=== PATIENT | female | born 2000 | race Caucasian/White ===

== ENCOUNTER 2022-08-31 09:16 | Emergency (ER) | payer SELFPAY ==
[2022-08-31] VITALS (24 sets, daily range): BP systolic 104–165; BP diastolic 63–100; PULSE 80–112; RESP 16–18; TEMP 36.8; O2SAT 95–100
--- NOTE | ~2022-08-31 | CT_ITS ---
EXAMINATION: CT abdomen pelvis w con DATE: 08/31/2022 12:49 INDICATION: Abdominal pain. Vomiting. Leukocytosis. TECHNIQUE: Computed tomography (CT) of the abdomen and pelvis was performed with 100 mL Omnipaque 350 intravenous contrast. Automated exposure control and iterative reconstruction technique were employe d. The dose-length product was 367.02 mGy-cm. COMPARISON: None. FINDINGS: The visualized portions of the lung bases are clear without pneumonia or pleural effusion. The heart size is normal. No pericardial effusion. The liver, gallbladder, spleen, pancreas, adrenal glands, and kidneys are normal. There are no dilated loops of bowel. The appendix is normal. There ar e no pathologically enlarged lymph nodes. There is no free intraperitoneal fluid. There is dextrocurv ature of thoracolumbar spine. IMPRESSION: 1. No etiology for the patient's symptoms. Reviewed, dictated and finalized at location A. [employer]
[2022-08-31] MEDS: ONDANSETRON INJ 4 MG/2 ML VIAL IV PUSH (09:58)
[2022-08-31] MEDS: SODIUM CHLORIDE 0.9% IV 1,000 ML 999 ML IV CONT ×2 (09:58→11:36)
[2022-08-31] MEDS: FAMOTIDINE 20 MG/2 ML VIAL IV PUSH (10:00)
--- NOTE | 2022-08-31 10:01 | ED.NAVMDI ---
HPI - Nausea/Vomiting/Diarrhea General Chief complaint: Nausea/Vomiting/Diarrhea <Mary Hamilton PA-C - Last Filed: 08/31/22 18:17> Stated complaint: N/V/D <Mary Hamilton PA-C - Last Filed: 08/31/22 18:17> Time Seen by Provider: 08/31/22 09:39 <Mary Hamilton PA-C - Last Filed: 08/31/22 18:17> Source: patient <Mary Hamilton PA-C - Last Filed: 08/31/22 18:17> Mode of arrival: ambulatory <Mary Hamilton PA-C - Last Filed: 08/31/22 18:17> Limitations: no limitations <Mary Hamilton PA-C - Last Filed: 08/31/22 18:17> History of Present Illness HPI Narrative: This is a 21-year-old female that presents to the emergency department for nausea, vomiting and diarrhea. Ongoing since early this morning around 1AM. Reports she has not been able to keep anything down. Is now dry-heaving. Reports burning epigastric pain radiating into the chest. Denies fevers. <Mary Hamilton PA-C - Last Filed: 08/31/22 18:17> Related Data Allergies/Adverse reactions: Allergies Allergy/AdvReac Type Severity Reaction Status Date / Time No Known Allergies Allergy Verified 08/31/22 09:17 <Mary Hamilton PA-C - Last Filed: 08/31/22 18:17> Review of Systems Review of Systems: CONSTITUTIONAL: Denies fever GASTROINTESTINAL: Reports abdominal pain, nausea, vomiting, and diarrhea. GENITOURINARY: Denies dysuria or hematuria. <Mary Hamilton PA-C - Last Filed: 08/31/22 18:17> All systems reviewed & are unremarkable except as noted in HPI and below <Mary Hamilton PA-C - Last Filed: 08/31/22 18:17> [facility] Past Medical History Medical History: Medical History (Updated 08/31/22 @ 18:17 by Mary Hamilton PA-C) No active medical problems <Mary Hamilton PA-C - Last Filed: 08/31/22 18:17> Social History Social History: Social History (Updated 08/31/22 @ 10:02 by Mary Hamilton PA-C) Smoking status: Never smoker Substance use: never <Mary Hamilton PA-C - Last Filed: 08/31/22 18:17> Exam Narrative: GENERAL: Actively vomiting, well-nourished, and in no acute distress. HEAD: Normocephalic, atraumatic. EYES: EOMI. CHEST: Clear to auscultation. No respiratory distress. No wheezes rales or rhonchi HEART: Regular rate and rhythm. No murmur heard. Normal peripheral pulses. ABDOMEN: Soft, nondistended, normal active bowel sounds. Mild tenderness to palpation in epigastrium, without guarding. No CVA tenderness EXTREMITIES: Normal range of motion. No edema. SKIN: Warm, dry, no rash. NEURO: No focal deficits. Alert and oriented x3. PSYCH: Normal mood and affect <Mary Hamilton PA-C - Last Filed: 08/31/22 18:17> Course Course Emergency Course: Patient with continued vomiting after hydration and several antiemetics. Will be admitted for further management <Mary Hamilton PA-C - Last Filed: 08/31/22 18:17> [employer]/PA Physician Supervision For this patient encounter, I reviewed the FABRIC STRETCHER or PA documentation, treatment plan, and medical decision making; and I had [id number] time with this patient. <Felicitas Mireles MD - Last Filed: 08/31/22 17:13> Consultations Consultation #1: Spoke with hospitalist about patient work-up who accepts admission <Mary Hamilton PA-C - Last Filed: 08/31/22 18:17> Date: 08/31/22 <Mary Hamilton PA-C - Last Filed: 08/31/22 18:17> Vital Signs Vital signs: Vital Signs Temperature 98.3 F 08/31/22 09:31 Pulse Rate 103 H 08/31/22 09:31 Respiratory Rate 18 08/31/22 09:31 Blood Pressure 122/96 H 08/31/22 09:31 Pulse Oximetry 100 08/31/22 09:31 Oxygen Delivery Room Air 08/31/22 09:31 Temperature 98.3 F 08/31/22 09:31 Pulse Rate 80 08/31/22 11:36 Respiratory Rate 16 08/31/22 11:36 Blood Pressure 118/76 08/31/22 11:36 Pulse Oximetry 100 08/31/22 11:36 Oxygen Delivery Room Air 08/31/22 09:31 <Mary Hamilton PA-C - Last Filed: 08/31/22 18:17> Vital Signs
[2022-08-31 10:11] LABS: Basophils Percent Auto 0.1 % (0.2-1.2); Hematocrit 44.1 % (37.0-47.0); Hemoglobin 15.2 g/dL (12.0-15.0); Immature Granulocyte Absolute 0.04 K/mm3 (0.00-0.031); Immature Granulocyte Percent A 0.3 % (0-0.5); Lymphocytes Absolute Auto 0.77 K/mm3 (0.9-3.2); Mean Corpuscular HGB Conc 34.5 g/dl (32-36); Mean Corpuscular Hemoglobin 30.4 pg (26-34); Mean Corpuscular Volume 88.2 fl (80-100); Mean Platelet Volume 10.3 fl (7.4-10.4); Monocytes Absolute Auto 0.3 K/mm3 (0.1-0.6); Monocytes Percent Auto 2.1 % (2.6-8.5); Neutrophils Absolute Auto 11.8 K/mm3 (1.3-6.7); Neutrophils Percent Auto 91.5 % (45.5-73.1); Platelet Count Result 317 k/mm3 (150-375); Red Cell Distribution Width 12.3 % (11.5-14.5); White Blood Count 12.9 K/mm3 (4.5-10.0)
[2022-08-31 10:32] LABS: Alanine Aminotransferase 33 U/L (6-35); Albumin Level 5.2 g/dL (3.5-5.1); Alkaline Phosphatase 70 U/L (38-126); Anion Gap 21 mmol/L (8-16); Aspartate Amino Transferase 36 U/L (14-36); Bilirubin,Total 0.8 mg/dL (0.2-1.3); Blood Urea Nitrogen 18 mg/dL (7-17); Calcium 9.9 mg/dL (8.4-10.2); Carbon Dioxide 19 mmol/L (22-30); Chloride 102 mmol/L (98-107); Estimated CRCL calculation 110 ml/min; Estimated Glomerular Filt Rate > 60; Glucose 180 mg/dL (65-110); Lipase 90 U/L (23-300); Potassium 3.6 mmol/L (3.4-5.0); Sodium 142 mmol/L (137-145)
[2022-08-31 10:49] LABS: Influenza A QL RT-PCR Negative (Negative); Influenza B QL RT-PCR Negative (Negative); SARS-CoV-2 RNA PCR Negative
[2022-08-31 11:27] LABS: Appearance Urine Clear (Clear); Bilirubin Urine Negative (Negative); Blood Urine Negative (Negative); Color Urine Yellow (Yellow); Glucose Urine UA Negative (Negative); Ketones Urine 4+ mg/dL (Negative); Leukocyte Esterase Ur Negative LEU/UL (Negative); Nitrate Urine Negative (Negative); Protein Urine 2+ mg/dL (Negative); Urobilinogen Urine 0.2 mg/dL (<2.0); pH Urine >=9.0 (5.0-9.0)
[2022-08-31 11:29] LABS: Bacteria Urine Trace /hpf; Mucus Urine Rare /lpf; RBC Urine 0-2 /hpf (0-2); Squamous Epithelial Cell Urine Moderate /hpf (Few); WBC Urine 0-3 /hpf
[2022-08-31 11:31] LABS: Hemoglobin A1C 4.8 % (<5.7)
[2022-08-31 11:33] LABS: Add Urine Microscopic? YES
[2022-08-31] MEDS: METOCLOPRAMIDE HCL INJ 10 MG/2 ML VIAL IV PUSH (13:10)
[2022-08-31] MEDS: diphenhydrAMINE HCl INJ 50 MG/ML VIAL 25 MG IV PUSH (13:10)
[2022-08-31] MEDS: SODIUM CHLORIDE 0.9% IV 500 ML 999 ML IV CONT (13:46)
[2022-08-31 15:06] LABS: Anion Gap 14 mmol/L (8-16); Blood Urea Nitrogen 13 mg/dL (7-17); Calcium 8.6 mg/dL (8.4-10.2); Carbon Dioxide 20 mmol/L (22-30); Chloride 105 mmol/L (98-107); Estimated CRCL calculation 126 ml/min; Estimated Glomerular Filt Rate > 60; Glucose 121 mg/dL (65-110); Potassium 3.6 mmol/L (3.4-5.0); Sodium 139 mmol/L (137-145)
[2022-08-31] MEDS: SODIUM CHLORIDE 0.9% IV 1,000 ML 125 ML IV CONT (17:24)
== END 2022-08-31 19:06 | disposition home or self-care (01) ==
PROVIDERS: Physician Assistant; Emergency Provider Emergency Medicine
DX: K52.9 Noninfective gastroenteritis and colitis, unspecified (principal); Z20.822 Contact with and (suspected) exposure to COVID-19
CPT/HCPCS: 36415; 74177; 80048; 80053; 81001; 81025; 83036; 83690; 85025; 87636; 96361; 96365; 96375; 99284; J0131; J1200; J2405; J2765; J7030; J7040; Q9967